=== PATIENT | female | born 1955 | race Caucasian/White ===

== ENCOUNTER 2019-01-29 18:59 | Emergency (ER) | payer OTHER ==
[~2019-01-29] VITALS: Ht 167.6 cm; Wt 68.9 kg
[~2019-01-29 18:59] MED LIST: AMOX TR-K CLV 51 TAB; SYNTHROID88 MCG
[2019-01-29] MEDS ORDERED: PREVASTATIN (19:06)
[2019-01-29] MEDS ORDERED: RISPERDAL0.5 MG (19:07)
[2019-01-29] MEDS ORDERED: XANAX1 MG (19:07)
== END 2019-01-29 22:16 | disposition home or self-care (01) ==
LOC: ER 18:59
DX: K52.9 Noninfective gastroenteritis and colitis, unspecified (principal)